=== PATIENT | female | born 1985 | race Caucasian/White ===

== ENCOUNTER 2018-12-19 17:18 | Inpatient (IN) ==
[2018-12-19] MEDS ORDERED: ONDANSETRON 4 MG/2 ML VIAL IV PRN (17:45)
[2018-12-19 18:10] LABS: Basophils % 0.4 % (0.0-0.8); Eosinophils # 0.2 10*3/uL (0.0-0.87); Hematocrit 25.3 VOL% (35.7-47.0); Hemoglobin 7.9 GM/DL (12.0-16.0); Immature Granulocytes % 1.2 %; Lymphocytes # 1.6 10*3/uL (1.4-4.0); Lymphocytes % 19.3 % (21.3-54.2); Mean Corpuscular HGB Conc 31.2 GM/DL (32-36); Mean Corpuscular Hemoglobin 26 PG (27-34); Mean Corpuscular Volume 83.8 FL (87-102); Mean Platelet Volume 9.3 FL (9.6-12.0); Monocytes # 0.6 10*3/uL (0.11-0.8); Monocytes % 6.8 % (1.7-12.7); Neutrophils # 5.9 10*3/uL (1.4-7.4); Neutrophils % 70.3 % (38.7-73.9); Platelet Count 228 T/CUMM (130-400); Red Blood Count 3.02 MC/CUMM (3.8-5.5); Red Cell Distribution Width 13.9 % (9.3-17.3); White Blood Count 8.4 T/CUMM (4-12)
[2018-12-19] MEDS: LACTATED RINGERS 1,000 ML IV SCH (18:10)
[2018-12-19 18:24] LABS: INR 0.9; PT Patient Result 10.1 SECS; Partial Thromboplastin Time 21.7 SECS (0-40)
[2018-12-19 18:28] LABS: Alanine Aminotransferase 15 U/L (13-56); Albumin 2.6 G/DL (3.4-5.0); Alkaline Phosphatase 148 U/L (45-117); Aspartate Amino Transferase 15 U/L (0-37); Bilirubin,Direct < 0.100 MG/DL (0.0-0.20); Bilirubin,Total < 0.39 MG/DL (0.2-1.0); Blood Urea Nitrogen 10 MG/DL (7-18); Calcium 8.2 MG/DL (8.5-10.1); Glucose 95 MG/DL (74-106); Osmolality,Calculated 275.5 MOS/KG (273-304); Potassium 3.7 MMOL/L (3.5-5.1); Sodium 139 MMOL/L (136-145); Total Protein 6.6 G/DL (6.4-8.3); Uric Acid 5.8 MG/DL (2.6-6.0)
[2018-12-20] MEDS: BUTORPHANOL 2 MG/ML VIAL IV PRN ×3 (00:24→07:02)
[2018-12-20] MEDS: LACTATED RINGERS 1,000 ML IV SCH (05:10)
[2018-12-20] MEDS ORDERED: OXYTOCIN/LR 20 UNIT/1,000 ML BAG IV SCH (06:00)
[2018-12-20] MEDS ORDERED: diphenhydrAMINE 50 MG/1 ML VIAL IV PRN (06:14)
[2018-12-20] MEDS ORDERED: hydrOXYzine HCL 25 MG/1 ML VIAL IM PRN (06:14)
[2018-12-20] MEDS ORDERED: FAMOTIDINE 20 MG/2 ML VIAL IV ONE (06:14)
[2018-12-20] MEDS ORDERED: ePHEDrine 50 MG/ML AMP IV PRN (06:14)
[2018-12-20] MEDS ORDERED: PROMETHAZINE 25 MG/1 ML VIAL IM ONE (06:14)
[2018-12-20] MEDS ORDERED: NALOXONE 0.4 MG/ML VIAL IV PRN (06:14)
[2018-12-20] MEDS ORDERED: CITRIC ACID/SODIUM CITRATE 30 ML UDCUP PO ONE (06:14)
[2018-12-20] MEDS ORDERED: fentaNYL 2 MCG/ROPIV 0.2% EPID 100 ML EPIDURAL SCH (06:30)
[2018-12-20] MEDS ORDERED: LIDOCAINE 1% 50 ML VIAL ONE (06:40)
[2018-12-20] MEDS ORDERED: CARBOPROST TROMETHAMINE 250 MCG/ML AMP IM ONE (06:42)
[2018-12-20] MEDS ORDERED: OXYTOCIN/LR 20 UNIT/1,000 ML BAG IV ONE (09:29)
[2018-12-20] MEDS: IBUPROFEN 800 MG TABLET PO PRN (10:19)
[2018-12-20] MEDS ORDERED: oxyCODONE/ACETAMINOPHEN 5-325 MG TABLET PO PRN (11:50)
[2018-12-20] MEDS: oxyCODONE/ACETAMINOPHEN 5-325 MG TABLET PO PRN ×2 (12:05→17:00)
[2018-12-21 02:13] LABS: Basophils % 0.3 % (0.0-0.8); Eosinophils # 0.1 10*3/uL (0.0-0.87); Eosinophils % 1.5 % (0.00-10.9); Hematocrit 24.6 VOL% (35.7-47.0); Hemoglobin 7.5 GM/DL (12.0-16.0); Immature Granulocytes % 0.7 %; Immature Granulocytes Absolute 0.07 #; Lymphocytes % 20.6 % (21.3-54.2); Mean Corpuscular HGB Conc 30.5 GM/DL (32-36); Mean Corpuscular Hemoglobin 26 PG (27-34); Mean Platelet Volume 9.3 FL (9.6-12.0); Monocytes # 0.8 10*3/uL (0.11-0.8); Monocytes % 7.8 % (1.7-12.7); Neutrophils # 6.7 10*3/uL (1.4-7.4); Neutrophils % 69.1 % (38.7-73.9); Platelet Count 177 T/CUMM (130-400); Red Blood Count 2.93 MC/CUMM (3.8-5.5); White Blood Count 9.6 T/CUMM (4-12)
[2018-12-21] MEDS: IBUPROFEN 800 MG TABLET PO PRN ×2 (02:34→23:15)
[2018-12-21] MEDS: DOCUSATE SODIUM 100 MG CAPSULE PO SCH ×2 (09:31→21:32)
[2018-12-21] MEDS: FERROUS SULFATE 325 MG TABLET PO SCH ×3 (09:32→21:32)
[2018-12-21] MEDS ORDERED: SODIUM CHLORIDE 0.9% 1,000 ML IV PRN (09:34)
[2018-12-21] MEDS: oxyCODONE/ACETAMINOPHEN 5-325 MG TABLET PO PRN (14:29)
[2018-12-21] MEDS ORDERED: FUROSEMIDE 20 MG/2 ML VIAL IV ONE (14:54)
[2018-12-21 20:18] LABS: Hematocrit 32.7 VOL% (35.7-47.0)
[2018-12-21 20:20] LABS: Hemoglobin 10.3 GM/DL (12.0-16.0)
[2018-12-22] MEDS: FERROUS SULFATE 325 MG TABLET PO SCH (08:59)
[2018-12-22] MEDS: DOCUSATE SODIUM 100 MG CAPSULE PO SCH (08:59)
[2018-12-22 11:18] VITALS: BP 140/81
== END 2018-12-22 14:05 | disposition home or self-care (01) | DRG 560 ==
LOC: N.LDOUT 17:18 → N.LD 17:19 → N.OB 12-20 10:29
PROVIDERS: ADMIT Obstetrics & Gynecology; ATTEND Obstetrics & Gynecology

== ENCOUNTER 2021-02-28 04:06 | Inpatient (IN) ==
[2021-02-28] MEDS ORDERED: LACTATED RINGERS 1,000 ML IV ONE ×2 (04:31→08:23)
[2021-02-28] MEDS ORDERED: ONDANSETRON 4 MG/2 ML VIAL IV PRN ×2 (04:31→09:13)
[2021-02-28] MEDS ORDERED: LACTATED RINGERS 500 ML IV PRN (04:31)
[2021-02-28] MEDS ORDERED: ePHEDrine 50 MG/ML VIAL IV PRN ×2 (04:32→08:23)
[2021-02-28] MEDS ORDERED: ONDANSETRON 4 MG/2 ML VIAL IV ONE (04:32)
[2021-02-28] MEDS ORDERED: PROMETHAZINE 25 MG/1 ML VIAL IM ONE (04:32)
[2021-02-28] MEDS ORDERED: CITRIC ACID/SODIUM CITRATE 30 ML UDCUP PO ONE ×2 (04:32→08:23)
[2021-02-28] MEDS ORDERED: diphenhydrAMINE 50 MG/1 ML VIAL IV PRN ×2 (04:32)
[2021-02-28] MEDS ORDERED: FAMOTIDINE 20 MG/2 ML VIAL IV ONE ×3 (04:32→08:23)
[2021-02-28] MEDS ORDERED: hydrOXYzine HCL 25 MG/1 ML VIAL IM PRN (04:32)
[2021-02-28] MEDS ORDERED: NALOXONE 0.4 MG/ML VIAL IV PRN (04:32)
[2021-02-28] MEDS ORDERED: CITRIC ACID/SODIUM CITRATE 30 ML UDCUP ONE (04:38)
[2021-02-28 04:48] LABS: Bacteria,Urine Moderate /HPF (Few); Bilirubin,Urine Negative (Negative); Blood, Urine Large mg/dL (Negative); Glucose,Urine (UA) Negative (Negative); Ketones,Urine Negative (Negative); Mucus,Urine Occasional /LPF (Occasional); Nitrite,Urine Negative (Negative); Protein,Urine 30 MG/DL; Squamous Epithelial Cell,Urine Few /HPF (0-10); Urine Appearance CLOUDY (Clear); Urine Color Yellow (Yellow); Urine Specific Gravity 1.017 (1.001-1.035); Urine Urobilinogen < 2.0 EU/DL (0.2-1.0)
[2021-02-28] MEDS ORDERED: fentaNYL 2 MCG/ROPIV 0.2% EPID 100 ML EPIDURAL SCH ×2 (05:00→08:30)
[2021-02-28] MEDS ORDERED: LACTATED RINGERS 1,000 ML IV SCH ×2 (05:00→08:30)
[2021-02-28 05:24] LABS: Basophils % 0.4 % (0.0-0.8); Eosinophils # 0.1 10*3/uL (0.0-0.87); Eosinophils % 1.5 % (0.00-10.9); Hematocrit 27.2 VOL% (35.7-47.0); Immature Granulocytes % 1.5 %; Immature Granulocytes Absolute 0.14 #; Mean Corpuscular HGB Conc 29.4 GM/DL (32-36); Mean Corpuscular Volume 84.5 FL (87-102); Mean Platelet Volume 10.2 FL (9.6-12.0); Monocytes % 7.2 % (1.7-12.7); NRBC # 0.05 10*3/uL; Neutrophils % 68.4 % (38.7-73.9); Platelet Count 233 T/CUMM (130-400); Red Blood Count 3.22 MC/CUMM (3.8-5.5); Red Cell Distribution Width 14.6 % (9.3-17.3); White Blood Count 9.6 T/CUMM (4-12)
[2021-02-28 05:44] LABS: Barbiturates Screen,Urine Negative (Negative); Benzodiazepines Screen,Urine Negative (Negative); Cannabinoid Screen,Urine Negative (Negative); Opiate Screen,Urine Negative (Negative); Phencyclidine Screen,Urine Negative (Negative)
[2021-02-28 05:47] LABS: Albumin 2.4 G/DL (3.4-5.0); Bilirubin,Total 0.4 MG/DL (0.2-1.0); Calcium 10.2 MG/DL (8.5-10.1); Osmolality,Calculated 274.7 MOS/KG (273-304); Potassium 3.9 MMOL/L (3.5-5.1); Total Protein 6.9 G/DL (6.4-8.2)
[2021-02-28] MEDS ORDERED: OXYTOCIN/LR 30 UNIT/1,000 ML BAG IV ONE (07:55)
[2021-02-28] MEDS ORDERED: METHYLERGONOVINE 0.2 MG/1 ML AMP ONE (08:03)
[2021-02-28] MEDS ORDERED: miSOPROStoL 200 MCG TABLET ONE (08:03)
[2021-02-28] MEDS ORDERED: TRANEXAMIC ACID 1,000 MG/10 ML VIAL ONE (08:03)
[2021-02-28] MEDS ORDERED: CARBOPROST TROMETHAMINE 250 MCG/ML AMP IM ONE (08:04)
[2021-02-28] MEDS ORDERED: LACTATED RINGERS 250 ML IV PRN (08:23)
[2021-02-28 09:08] LABS: Cord Arterial Blood HCO3 19.3 MMOL/L
[2021-02-28 09:10] LABS: Cord Venous Blood HCO3 23.3 MMOL/L; Cord Venous Blood PCO2 43.9 MMHG; Cord Venous Blood PO2 26.5 MMHG
[2021-02-28] MEDS ORDERED: DIPH/TET/ACEL PERT BOOSTER VACCINE 0.5 ML VIAL IM ONE (09:13)
[2021-02-28] MEDS ORDERED: oxyCODONE/ACETAMINOPHEN 5-325 MG TABLET PO PRN (09:13)
[2021-02-28] MEDS ORDERED: WITCH HAZEL PADS 100/JAR TOP PRN (09:13)
[2021-02-28] MEDS ORDERED: BENZOCAINE 20%/MENTHOL 0.5% SPRAY 56 GM CAN TOP PRN (09:13)
[2021-02-28] MEDS ORDERED: OXYTOCIN/LR 20 UNIT/1,000 ML BAG IV ONE (09:13)
[2021-02-28] MEDS ORDERED: LANOLIN 50% CREAM 0.3 OZ TUBE TOP PRN (09:13)
[2021-02-28] MEDS ORDERED: RHO(D) IMMUNE GLOBULIN 300 MCG SYRINGE IM ONE (09:13)
[2021-02-28] MEDS ORDERED: ACETAMINOPHEN 325 MG TABLET PO PRN (09:13)
[2021-02-28] MEDS ORDERED: HYDROCORTISONE 2.5% RECTAL CREAM 30 GM TUBE TOP PRN (09:13)
[2021-02-28] MEDS ORDERED: MEASLES/MUMPS/RUBELLA VACCINE 0.5 ML VIAL SUBCUT ONE (09:13)
[2021-02-28] MEDS ORDERED: BISACODYL 10 MG SUPP RECTAL PRN (09:13)
[2021-02-28 12:35] LABS: Basophils % 0.2 % (0.0-0.8); Eosinophils % 0.4 % (0.00-10.9); Hematocrit 26.4 VOL% (35.7-47.0); Immature Granulocytes % 1.3 %; Immature Granulocytes Absolute 0.14 #; Lymphocytes # 1.2 10*3/uL (1.4-4.0); Lymphocytes % 10.7 % (21.3-54.2); Mean Corpuscular HGB Conc 30.3 GM/DL (32-36); Mean Platelet Volume 9.6 FL (9.6-12.0); Monocytes % 6.5 % (1.7-12.7); NRBC # 0.04 10*3/uL; Neutrophils % 80.9 % (38.7-73.9); Platelet Count 188 T/CUMM (130-400); Red Blood Count 3.22 MC/CUMM (3.8-5.5); Red Cell Distribution Width 14.7 % (9.3-17.3); White Blood Count 11.1 T/CUMM (4-12)
[2021-02-28] MEDS: FERROUS SULFATE 325 MG TABLET PO SCH ×2 (15:58→21:59)
[2021-02-28] MEDS: IBUPROFEN 800 MG TABLET PO PRN (15:58)
[2021-02-28] MEDS: DOCUSATE SODIUM 100 MG CAPSULE PO SCH (21:59)
[2021-02-28] MEDS: oxyCODONE/ACETAMINOPHEN 5-325 MG TABLET PO PRN (22:05)
[2021-03-01 06:08] LABS: Basophils # 0.1 10*3/uL (0.0-0.2); Basophils % 0.6 % (0.0-0.8); Eosinophils # 0.1 10*3/uL (0.0-0.87); Eosinophils % 1.5 % (0.00-10.9); Hematocrit 26.5 VOL% (35.7-47.0); Hemoglobin 8.1 GM/DL (12.0-16.0); Immature Granulocytes % 1.9 %; Immature Granulocytes Absolute 0.17 #; Lymphocytes # 2.1 10*3/uL (1.4-4.0); Lymphocytes % 24.2 % (21.3-54.2); Mean Corpuscular HGB Conc 30.6 GM/DL (32-36); Mean Corpuscular Volume 82.6 FL (87-102); Mean Platelet Volume 9.8 FL (9.6-12.0); Monocytes % 8.2 % (1.7-12.7); NRBC # 0.06 10*3/uL; Neutrophils % 63.6 % (38.7-73.9); Platelet Count 192 T/CUMM (130-400); Red Blood Count 3.21 MC/CUMM (3.8-5.5); Red Cell Distribution Width 14.6 % (9.3-17.3); White Blood Count 8.8 T/CUMM (4-12)
[2021-03-01] MEDS: IBUPROFEN 800 MG TABLET PO PRN (06:21)
[2021-03-01] MEDS: FERROUS SULFATE 325 MG TABLET PO SCH ×3 (09:56→20:26)
[2021-03-01] MEDS: DOCUSATE SODIUM 100 MG CAPSULE PO SCH ×2 (09:56→20:26)
[2021-03-02] MEDS: IBUPROFEN 800 MG TABLET PO PRN (03:20)
[2021-03-02] MEDS: oxyCODONE/ACETAMINOPHEN 5-325 MG TABLET PO PRN (03:20)
[2021-03-02 07:40] VITALS: BP 138/87
[2021-03-02] MEDS: FERROUS SULFATE 325 MG TABLET PO SCH (09:13)
[2021-03-02] MEDS: DOCUSATE SODIUM 100 MG CAPSULE PO SCH (09:14)
== END 2021-03-02 13:52 | disposition home or self-care (01) | DRG 560 ==
LOC: N.LDOUT 04:06 → N.LD 04:09 → N.OB 13:00
PROVIDERS: ADMIT Obstetrics & Gynecology; ATTEND Obstetrics & Gynecology